=== PATIENT | male | born 1955 | race Caucasian/White ===

== ENCOUNTER → 2019-12-08 16:44 | Outpatient (CLI) | payer OTHER, SELFPAY ==
--- NOTE | ~2019-12-08 | XR_ITS ---
[[id number] ] INDICATION: Left lateral chest pain TECHNIQUE: Frontal projection of the upper left ribs, frontal projection of the lower left ribs, obli que projection of all the left ribs, frontal inspiratory chest x-ray for interpretation. FINDINGS: There are no displaced rib fractures identified. There are no soft tissue abnormality see n. The lungs are clear. There is mild thoracic spondylosis. IMPRESSION: 1:No displaced rib fractures. Reviewed, dictated and finalized at location A.
== END ==
PROVIDERS: Visit Provider Internal Medicine
DX: R07.9 Chest pain, unspecified (principal)
CPT/HCPCS: 71101

== ENCOUNTER → 2019-12-29 10:42 | Outpatient (CLI) | payer OTHER, SELFPAY ==
--- NOTE | ~2019-12-29 | MR_ITS ---
EXAMINATION: MR thoracic spine wo con DATE: 12/29/2019 11:35 INDICATION: Compression fracture of body of thoracic vertebra. TECHNIQUE: Magnetic resonance imaging (MRI) of the thoracic spine was performed without intravenous c ontrast. Sagittal localizer T1-weighted FSE of the cervical spine was obtained. Thoracic spine sequen catrina included sagittal T2-weighted FSE, sagittal T1-weighted FSE, sagittal T2-weighted FS FSE, and axi al T2-weighted FSE. COMPARISON: Thoracic spine MRI 07/26/2019, CT 10/17/2019 FINDINGS: There is 4 degrees levocurvature of thoracic spine. There is a burst fracture of T6 with 3/ 5 loss of height, bone marrow edema, and retropulsion of bone 3 mm into central spinal canal. There i s a burst fracture of T7 with 2/5 loss of height, bone marrow edema, and retropulsion of bone 3 mm in to central spinal canal. There are chronic compression fractures of T3, T8, T9, and L1. There are Brodie morl's nodes at multiple levels. There is mildly decreased disc height at T8-T9 and T9-T10. At T3-T4, there is a central protrusion with mild central canal stenosis and right ventral indentation of the spinal cord. At T4-T5, there is a left central extrusion with mild central canal stenosis. At T6-T7, there is a right central extrusion with mild central canal stenosis. At T9-T10, there is a central ex trusion with mild central canal stenosis. At T12-L1, there is a left central protrusion with mild toño tral canal stenosis. There is multilevel mild facet joint osteoarthritis. There is multilevel mild ne ural foraminal stenosis bilaterally. At T6-T7, there is moderate bilateral neural foraminal stenosis. The spinal cord signal intensity is normal. The conus medullaris is at L1. There is a moderate-sized sliding hiatal hernia. IMPRESSION: 1. Acute versus subacute T7 burst fracture, new from 10/17/2019. 2. Subacute T6 burst fracture, stable from 10/17/2019. 3. Mild thoracic spondylosis. Reviewed, dictated and finalized at location A.
== END ==
PROVIDERS: Visit Provider Physician Assistant
DX: S22.000A Wedge compression fracture of unspecified thoracic vertebra, initial encounter for closed fracture (principal); X58.XXXA Exposure to other specified factors, initial encounter; M41.9 Scoliosis, unspecified
CPT/HCPCS: 72146

== ENCOUNTER → 2020-10-19 10:32 | Outpatient (CLI) | payer OTHER, SELFPAY ==
--- NOTE | ~2020-10-19 | XR_ITS ---
EXAMINATION: XR thoracic spine 3V DATE: 10/19/2020 10:55 INDICATION: Compression fracture of the thoracic vertebra TECHNIQUE: AP, lateral and lateral swimmer's views of the thoracic spine were obtained. COMPARISON: 07/22/2019; MRI, 12/29/2019 FINDINGS: There are changes of interval vertebroplasty at T6 and T7. Bone alignment is normal. An unc hanged compression deformity of L1 is noted. No new fracture is identified. There is loss of interver tebral disc space height at multiple levels in the thoracic spine. Calcified mediastinal lymph nodes are consistent with old granulomatous disease. IMPRESSION: 1. Interval vertebroplasty change at T6 and T7 without acute findings. 2. Mild spondylosis. Reviewed, dictated and finalized at location A. DEVELOPMENT MANAGER
== END ==
PROVIDERS: PCP Internal Medicine; Visit Provider Nurse Practitioner Family
DX: S22.000A Wedge compression fracture of unspecified thoracic vertebra, initial encounter for closed fracture (principal); X58.XXXA Exposure to other specified factors, initial encounter; M47.894 Other spondylosis, thoracic region
CPT/HCPCS: 72072

== ENCOUNTER → 2022-01-13 13:19 | Outpatient (CLI) | payer OTHER, SELFPAY ==
--- NOTE | ~2022-01-13 | XR_ITS ---
EXAM: XR thoracic spine 2V HISTORY: Pain in thoracic spine COMPARISON: 10/19/2020. FINDINGS: Vertebroplasty cement and stable compression fractures in the mid thoracic spine. Moderate wedge compression deformity incidentally noted at T12. Remaining vertebral body heights are maintain ed. Multilevel degenerative disc disease. Diffusely decreased mineralization. IMPRESSION: No acute osseous finding in the thoracic spine. Upper thoracic spine poorly visualized in the lateral view. Reviewed, dictated and finalized at location K. IMPRESSION: No acute osseous finding in the thoracic spine. Upper thoracic spine poorly vis ualized in the lateral view.
--- NOTE | ~2022-01-13 | XR_ITS ---
EXAM: XR cervical spine 4-5V HISTORY: Cervicalgia COMPARISON: None available FINDINGS: Craniocervical association and atlantoaxial joint are normal. No prevertebral soft tissue swelling. The vertebral body heights are maintained. Minimal degenerative disc disease at C3-4 throug h C5-6. Normal vertebral body alignment. Mild multilevel facet arthropathy. IMPRESSION: Mild degenerative changes as described above. Reviewed, dictated and finalized at location K.
--- NOTE | ~2022-01-13 | XR_ITS ---
EXAM: XR lumbar spine 2-3V HISTORY: Low back pain COMPARISON: MR lumbar spine 04/20/2006. FINDINGS: Decreased bone mineralization. Hypoplastic/absent ribs at T12. 5 nonrib-bearing lumbar-typ e vertebral bodies. Stable moderate compression fracture at T12. Mild compression deformity at L3. Mu ltilevel osteoporotic endplate deformities. Moderate multilevel degenerative disc disease. Multilevel facet arthropathy. IMPRESSION: Osteopenia. Multilevel compression fractures and endplate deformities. Multilevel degenerative disc d isease and facet arthropathy. Reviewed, dictated and finalized at location K. IMPRESSION: Osteopenia. Multilevel compression fractures and endplate deformities. Multilev el degenerative disc disease and facet arthropathy.
== END ==
PROVIDERS: PCP Internal Medicine; Visit Provider Internal Medicine
DX: M54.2 Cervicalgia (principal); M51.36 Other intervertebral disc degeneration, lumbar region; S32.000A Wedge compression fracture of unspecified lumbar vertebra, initial encounter for closed fracture; X58.XXXA Exposure to other specified factors, initial encounter
CPT/HCPCS: 72050; 72070; 72100

== ENCOUNTER 2022-01-30 15:18 | Outpatient (CLI) | payer OTHER, SELFPAY ==
--- NOTE | ~2022-01-30 | MR_ITS ---
EXAMINATION: MR lumbar spine wo con DATE: 01/30/2022 16:06 INDICATION: Low back pain. TECHNIQUE: Magnetic resonance imaging (MRI) of the lumbar spine was performed without intravenous con trast. Sequences included sagittal T2-weighted FSE, sagittal T2-weighted FS FSE, sagittal T1-weighted FSE, and axial T2-weighted FSE. COMPARISON: Lumbar spine MRI 04/20/2006 FINDINGS: There is 13 degrees dextroscoliosis of lumbar spine. There is 3 mm retrolisthesis of T12 on L1, L1 on L2, and L2 on L3. There are Schmorl's nodes at multiple levels. There is a chronic anthony jaleel fracture of T12 with 3/5 loss of height. There are chronic compression fractures of L2 and L3 wi th 1/5 and 2/5 loss of height, respectively. There is moderately decreased disc height at T12-L1, mil dly decreased disc height at L1-L2, L2-L3, and L3-L4, and moderately decreased disc height at L4-L5. The distal spinal cord signal intensity is normal. The conus medullaris is at T12. The following disc levels are specifically discussed: T12-L1: The disc is bulging and has an annular fissure. There is mild bilateral facet joint osteoarth ritis. There is mild bilateral neural foraminal stenosis. There is mild central canal stenosis. L1-L2: The disc is bulging and has an annular fissure. There is mild bilateral facet joint osteoarthr itis. There is mild right and moderate left neural foraminal stenosis. There is mild central canal st enosis. L2-L3: The disc is bulging. There is mild right and moderate left facet joint osteoarthritis. There i s mild bilateral neural foraminal stenosis. There is mild central canal stenosis. L3-L4: The disc is bulging and has an annular fissure. There is severe bilateral facet joint osteoart hritis. There is mild right and moderate left neural foraminal stenosis. There is mild central canal stenosis. L4-L5: The disc is bulging. There is severe right and moderate left facet joint osteoarthritis. There is moderate right and mild left neural foraminal stenosis. There is mild central canal stenosis. L5-S1: There is a right foraminal extrusion. There is severe right and mild left facet joint osteoart hritis. There is mild right neural foraminal stenosis. There is no central canal stenosis. IMPRESSION: 1. Moderate lumbar spondylosis, mildly worsened from 04/20/2006. 2. Lumbar dextroscoliosis. Reviewed, dictated and finalized at location A.
--- NOTE | ~2022-01-30 | MR_ITS ---
EXAMINATION: MR thoracic spine wo con DATE: 01/30/2022 16:04 INDICATION: Thoracic radiculopathy. TECHNIQUE: Magnetic resonance imaging (MRI) of the thoracic spine was performed without intravenous c ontrast. Sagittal localizer T1-weighted FSE of the cervical spine was obtained. Thoracic spine sequen catrina included sagittal T2-weighted FSE, sagittal T1-weighted FSE, sagittal T2-weighted FS FSE, and axi al T2-weighted FSE. COMPARISON: Thoracic spine MRI 12/29/2019 FINDINGS: There is 5 degrees levocurvature of thoracic spine. There is mild chronic anterior wedging of T2 on T3 vertebral bodies. There are chronic burst fractures of T6 and T7 with 3/5 and 2/5 loss of height, respectively, and changes of vertebroplasty. At T6, there is retropulsion of bone 2 mm into central spinal canal. There is mild chronic anterior wedging of T8 and T9 vertebral bodies. There is a chronic compression fracture of L1 with 3/5 loss of height centrally. There are Schmorl's nodes at multiple levels. There is mildly decreased disc height at T6-T7, T8-T9, T9-T10, and T11-T12. At T3-T4 , there is a central extrusion with mild central canal stenosis. At T4-T5, there is a left central pr otrusion with mild central canal stenosis. At T9-T10, there is a left central extrusion with mild toño tral canal stenosis. At T12-L1, there is a left central protrusion with mild central canal stenosis. There is multilevel facet joint osteoarthritis, severe on the left at T7-T8. On the left, there is mi ld neural foraminal stenosis at T4-T5, T5-T6, T6-T7, and T7-T8. The spinal cord signal intensity is n ormal. IMPRESSION: 1. Mild thoracic spondylosis, stable from 12/29/2019. Reviewed, dictated and finalized at location A.
== END 2022-01-30 15:19 ==
LOC: MICIMG 15:19
PROVIDERS: PCP Internal Medicine; Visit Provider Nurse Practitioner Family
DX: M47.24 Other spondylosis with radiculopathy, thoracic region (principal); M47.896 Other spondylosis, lumbar region
CPT/HCPCS: 72146; 72148

== ENCOUNTER → 2022-11-24 11:51 | Outpatient (CLI) | payer OTHER, SELFPAY ==
--- NOTE | ~2022-11-24 | XR_ITS ---
XR knee LT min 4V 11/24/2022 12:18 Indication: Left knee pain Procedure: 4 views left knee Comparison: 11/08/2012 Findings: There is mild osteoarthritis of the left knee. No fracture, subluxation or dislocation. Sma ll joint effusion. No foreign bodies. Impression: 1: Mild osteoarthritis of the left knee. Reviewed, dictated and finalized at location B. STICS ASSISTANT Impression: 1: Mild osteoarthritis of the left knee.
== END ==
PROVIDERS: PCP Internal Medicine; Visit Provider Internal Medicine
DX: M17.12 Unilateral primary osteoarthritis, left knee (principal)
CPT/HCPCS: 73564

== ENCOUNTER → 2023-08-24 15:13 | Outpatient (CLI) | payer OTHER, SELFPAY ==
--- NOTE | ~2023-08-24 | XR_ITS ---
EXAMINATION:XR_[id number]_CR DATE: 08/24/2023 15:48 INDICATION: Neck pain TECHNIQUE: AP, lateral, lateral swimmers and odontoid views of the cervical spine are provided. COMPARISON: 01/13/2022 FINDINGS: Alignment is normal. Odontoid is intact. Moderate atlantoaxial osteoarthritis. Vertebral body heights are normal. Mild disc height loss with moderate bilateral uncovertebral osteoarthritis at C3-C4 and with mild uncovertebral osteoarthritis at C4-C5. Cephalad predominant mild to moderate cervical facet osteoarthritis. Prevertebral soft tissues are normal. IMPRESSION: 1. Mild cervical spondylosis with mild to moderate facet and uncovertebral osteoarthritis. Reviewed, dictated and finalized at location A. PRESS SETTER IMPRESSION: 1. Mild cervical spondylosis with mild to moderate facet and uncovertebral oste oarthritis.
== END ==
PROVIDERS: PCP Internal Medicine; Visit Provider Internal Medicine
DX: M47.892 Other spondylosis, cervical region (principal)
CPT/HCPCS: 72040

== ENCOUNTER → 2023-09-07 16:40 | Outpatient (CLI) | payer OTHER, SELFPAY ==
--- NOTE | ~2023-09-07 | XR_ITS ---
EXAMINATION: XR knee RT 3V DATE: 09/07/2023 17:10 INDICATION: Right knee pain TECHNIQUE: Standing AP, lateral and sunrise views of the right knee were obtained. COMPARISON: 11/08/2012 FINDINGS: Alignment is normal. No fracture. Normal variant bipartite right patella with chronic hypertrophic c hange along the dorsal margin of the synchondrosis. There is mild patellofemoral osteoarthritis. Celestino tional mild osteoarthritis with unchanged mild joint space narrowing in the medial compartment. No jayshree int effusion/layering lipohemarthrosis. Soft tissues are unremarkable. IMPRESSION: 1. Mild medial and patellofemoral osteoarthritis. 2. Normal variant bipartite patella with chronic hypertrophic change along the synchondrosis. Reviewed, dictated and finalized at location A. TATION TECHNICIAN
== END ==
PROVIDERS: PCP Nurse Practitioner Family; Visit Provider Nurse Practitioner Family
DX: M17.11 Unilateral primary osteoarthritis, right knee (principal)
CPT/HCPCS: 73562

== ENCOUNTER → 2023-11-30 15:27 | Outpatient (CLI) | payer OTHER, SELFPAY ==
--- NOTE | ~2023-11-30 | XR_ITS ---
EXAMINATION: XR shoulder RT min 2V DATE: 11/30/2023 15:37 INDICATION: Right shoulder pain. TECHNIQUE: 4 views of right shoulder were obtained. COMPARISON: None. FINDINGS: Bone alignment is normal. No fracture. There is mild osteoarthritis of glenohumeral joint a nd moderate osteoarthritis of acromioclavicular joint. IMPRESSION: 1. Polyarticular osteoarthritis. Reviewed, dictated and finalized at location E. R MACHINE OPERATOR
== END ==
PROVIDERS: PCP Nurse Practitioner Family; Visit Provider Nurse Practitioner Family
DX: M19.011 Primary osteoarthritis, right shoulder (principal)
CPT/HCPCS: 73030

== ENCOUNTER 2025-01-06 13:51 | Outpatient (CLI) | payer OTHER, SELFPAY ==
--- NOTE | ~2025-01-06 | XR_ITS ---
Left Knee Technique: AP, lateral, and sunrise views were obtained. Clinical History: Pain Findings: No fracture or dislocation is seen. Osseous alignment is anatomic. There is mild tricompart mental degenerative change. Soft tissues are unremarkable. No joint effusion is seen. Impression: Mild tricompartmental degenerative change. Reviewed, dictated and finalized at [facility]. Impression: Mild tricompartmental degenerative change.
--- NOTE | ~2025-01-06 | XR_ITS ---
Right Knee Technique: AP, lateral, and sunrise views were obtained. Clinical History: Pain Findings: No fracture or dislocation is seen. There is advanced tricompartmental degenerative change, with medial compartment narrowing in particular. Bipartite patella noted. Soft tissues are unremarka ble. No joint effusion is seen. Impression: Advanced tricompartmental degenerative change, worst in the medial compartment. Bipartite patella. Reviewed, dictated and finalized at location M. Impression: Advanced tricompartmental degenerative change, worst in the medial compartment. Bipartite patella.
== END 2025-01-06 13:52 | disposition home or self-care (01) ==
LOC: MICIMG 13:53
PROVIDERS: PCP Internal Medicine; Visit Provider Internal Medicine
DX: M17.0 Bilateral primary osteoarthritis of knee (principal)
CPT/HCPCS: 73564